=== PATIENT | female | born 1990 ===

== ENCOUNTER 2020-05-30 08:25 | Outpatient (CLI) | payer BC, OTHER ==
[2020-05-30 19:12] LABS: SARS-CoV-2 MS2 Positive; SARS-CoV-2 N Gene Negative; SARS-CoV-2 S Gene Negative; SARS-CoV-2 by NAA Not Detected (NotDetected); SARS-CoV-2 orf1ab Negative
== END 2020-05-30 08:26 | disposition home or self-care (01) ==
LOC: LABBT 08:25
PROVIDERS: ATTEND Obstetrics & Gynecology
DX: Z20.828 Contact with and (suspected) exposure to other viral communicable diseases (principal)
CPT/HCPCS: 87635; U0003

== ENCOUNTER 2020-06-01 18:00 | Inpatient (IN) | payer BC, OTHER ==
[~2020-06-01 18:00] MED LIST: Bupivacaine/Epinephrine 0.25% 30 ML VIAL ONE
[2020-06-01] MEDS ORDERED: Lidocaine 1% (PF) 30 ML VIAL SC PRN (18:12)
[2020-06-01] MEDS ORDERED: Ibuprofen 800 MG TAB PO PRN (18:12)
[2020-06-01] MEDS ORDERED: Promethazine HCl 25 MG/ML VIAL IM PRN (18:12)
[2020-06-01] MEDS ORDERED: Acetaminophen 500 MG TAB PO PRN (18:12)
[2020-06-01] MEDS ORDERED: Diphenoxylate HCl/Atropine Tablet PO PRN ×2 (18:12)
[2020-06-01] MEDS ORDERED: Zolpidem Tartrate 5 MG TAB PO PRN (18:12)
[2020-06-01] MEDS ORDERED: Butorphanol Tartrate 1 MG/ML VIAL SLOW IVP PRN (18:12)
[2020-06-01] MEDS ORDERED: NS / Oxytocin 40 units/1000ml 1,000 ML IV PRN (18:12)
[2020-06-01] MEDS ORDERED: Misoprostol 200 MCG TAB PR PRN (18:12)
[2020-06-01] MEDS ORDERED: Ondansetron PF 4 MG/2 ML Vial IVP PRN (18:12)
[2020-06-01] MEDS ORDERED: Docusate 100 MG CAP PO PRN (18:12)
[2020-06-01] MEDS ORDERED: hydrALAZINE 20 MG/ML VIAL SLOW IVP PRN (18:12)
[2020-06-01] MEDS ORDERED: HYDROcodone/Acetaminophen 5/325 mg Tablet PO PRN ×2 (18:12)
[2020-06-01 18:59] VITALS: BMI 33.6
[2020-06-01] MEDS ORDERED: NS w/ Oxytocin 10 units 500 ML IV SCH (19:00)
[2020-06-01] MEDS: Lactated Ringer's 1,000 ML IV SCH (19:20)
[2020-06-01 19:31] LABS: Mean Corpuscular HGB CONC 35.9 g/dL (32.0-36.0); Mean Corpuscular Hemoglobin 31.2 pg (27.0-31.0); Mean Corpuscular Volume 86.8 fL (78.0-98.0); Mean Platelet Volume 9.4 fL (7.4-10.4); Platelet Count 227 thou/uL (130-400); RBC Distribution Width 11.5 % (11.5-14.5); Red Blood Cell (RBC) Count 4.16 mill/uL (4.20-5.40); White Blood Cell (WBC) Count 13.4 thou/uL (4.8-10.8)
[2020-06-01] MEDS: Misoprostol 100 MCG TAB VAG SCH ×2 (19:38→23:39)
[2020-06-01 20:17] LABS: Syphilis Antibody Nonreactive (Nonreactive); Syphilis Antibody Index 0.34 S/CO (<1.00 Non-Reactive)
[2020-06-01 22:41] LABS: HBSAg Index 0.12 S/CO (0-0.99); Hep B Surf Ag Non-Reactive S/CO (NonReactive)
[2020-06-02] MEDS: Lactated Ringer's 1,000 ML IV SCH ×3 (08:37→16:23)
[2020-06-02] MEDS ORDERED: FLU VACC QS2020-21(6MOS UP)/PF 60 MCG/0.5 ML SYRINGE IM ONE (09:00)
[2020-06-02] MEDS ORDERED: Fentanyl 4 mcg/Bup 0.1% Cadd 100 ML ONE ×2 (09:13→15:39)
[2020-06-02] MEDS ORDERED: Naloxone HCl 0.4 mg/ml Vial IVP PRN ×2 (09:57)
[2020-06-02] MEDS ORDERED: EPHEDRINE 25 MG/5 ML SYRINGE SLOW IVP PRN (09:57)
[2020-06-02] MEDS ORDERED: diphenhydrAMINE 50 MG/ML VIAL IVP PRN (09:57)
[2020-06-02] MEDS ORDERED: Acetaminophen 325 MG TAB PO PRN (09:57)
[2020-06-02] MEDS ORDERED: Lactated Ringer's 500 ML IV PRN (09:57)
[2020-06-02] MEDS ORDERED: Ondansetron PF 4 MG/2 ML Vial IVP PRN ×2 (09:57→21:18)
[2020-06-02] MEDS ORDERED: Promethazine HCl 25 MG/ML VIAL IM PRN (09:57)
[2020-06-02] MEDS ORDERED: Communication Order-Pharmacy FS SCH (10:00)
[2020-06-02] MEDS ORDERED: Fentanyl 4 mcg/Bupivacaine 0.1% Cassette 100 ML EPIDURAL SCH (10:00)
[2020-06-02] MEDS: NS w/ Oxytocin 10 units 500 ML IV SCH (11:10)
[2020-06-02] MEDS ORDERED: Fentanyl 100 MCG/2 ML VIAL ONE (15:13)
[2020-06-02] MEDS ORDERED: Fentanyl 100 MCG/2 ML VIAL SLOW IVP SCH (16:45)
[2020-06-02] MEDS ORDERED: NS / Oxytocin 40 units/1000ml 1,000 ML ONE (19:45)
[2020-06-02] MEDS ORDERED: Lidocaine 1% (PF) 30 ML VIAL ONE (19:45)
[2020-06-02] MEDS ORDERED: diphenhydrAMINE 25 MG CAP PO PRN (21:18)
[2020-06-02] MEDS ORDERED: Lanolin Ointment 7 GM TUBE TOP PRN (21:18)
[2020-06-02] MEDS ORDERED: HYDROcodone/Acetaminophen 5/325 mg Tablet PO PRN ×2 (21:18)
[2020-06-02] MEDS ORDERED: Preparation H Ointment 28 GM TUBE PR PRN (21:18)
[2020-06-02] MEDS ORDERED: hydrALAZINE 20 MG/ML VIAL SLOW IVP PRN (21:18)
[2020-06-02] MEDS ORDERED: Zolpidem Tartrate 5 MG TAB PO PRN (21:18)
[2020-06-02] MEDS ORDERED: Bisacodyl 10 MG SUPP PR PRN (21:18)
[2020-06-02] MEDS ORDERED: Adacel (T-DAP) 0.5 ML SYRINGE IM ONE (21:18)
[2020-06-02] MEDS ORDERED: Milk Of Magnesia 30 ML UDCUP PO PRN (21:18)
[2020-06-02] MEDS ORDERED: Benzocaine-Menthol 82.5 ML CAN TOP PRN (21:18)
[2020-06-02] MEDS ORDERED: Misoprostol 200 MCG TAB VAG PRN (21:18)
[2020-06-02] MEDS ORDERED: NS / Oxytocin 40 units/1000ml 1,000 ML IV SCH (21:30)
[2020-06-03] MEDS: Misoprostol 100 MCG TAB VAG SCH ×2 (04:40→04:41)
[2020-06-03] MEDS: NS w/ Oxytocin 10 units 500 ML IV SCH (04:41)
[2020-06-03 06:41] LABS: Hemoglobin 11.2 g/dL (12.0-16.0); Mean Corpuscular HGB CONC 36.5 g/dL (32.0-36.0); Mean Corpuscular Hemoglobin 31.9 pg (27.0-31.0); Mean Corpuscular Volume 87.5 fL (78.0-98.0); Mean Platelet Volume 8.8 fL (7.4-10.4); Platelet Count 139 thou/uL (130-400); RBC Distribution Width 11.5 % (11.5-14.5); Red Blood Cell (RBC) Count 3.51 mill/uL (4.20-5.40); White Blood Cell (WBC) Count 18.8 thou/uL (4.8-10.8)
[2020-06-03] MEDS: Ibuprofen 800 MG TAB PO SCH ×4 (07:56→17:07)
[2020-06-03] MEDS: Ferrous Sulfate 325 MG TAB PO SCH ×2 (08:04→17:09)
[2020-06-03] MEDS: Prenatal Vitamin 1 TAB PO SCH (09:54)
[2020-06-03] MEDS: Docusate Calcium (SURFAK) 240 MG CAP PO SCH (09:54)
[2020-06-04] MEDS: Docusate Calcium (SURFAK) 240 MG CAP PO SCH ×2 (00:11→08:14)
[2020-06-04] MEDS: Ibuprofen 800 MG TAB PO SCH ×3 (00:11→08:13)
[2020-06-04] MEDS: Prenatal Vitamin 1 TAB PO SCH (08:13)
[2020-06-04] MEDS: Ferrous Sulfate 325 MG TAB PO SCH (08:16)
[2020-06-04 08:52] VITALS: BP 113/59; TEMP 98.6
== END 2020-06-04 11:35 | disposition home or self-care (01) | DRG 807 ==
LOC: L&D 18:01 → 3SW 06-02 23:57
PROVIDERS: ADMIT Obstetrics & Gynecology; ATTEND Obstetrics & Gynecology
PROC: 10D07Z6 Extraction of Products of Conception, Vacuum, Via Natural or Artificial Opening (ICD-10-PCS; principal; 2020-06-02)
PROC: 0KQM0ZZ Repair Perineum Muscle, Open Approach (ICD-10-PCS; 2020-06-02)
PROC: 10907ZC Drainage of Amniotic Fluid, Therapeutic from Products of Conception, Via Natural or Artificial Opening (ICD-10-PCS; 2020-06-02)
PROC: 0W8NXZZ Division of Female Perineum, External Approach (ICD-10-PCS; 2020-06-02)
DX: O70.1 Second degree perineal laceration during delivery (principal); Z37.0 Single live birth; Z3A.39 39 weeks gestation of pregnancy
CPT/HCPCS: 36415; 85027; 86780; 86850; 86900; 86901; 87340; 87635; J2001; J2405; J2590; J3010; U0003